=== PATIENT | female | born 1970 | race Caucasian/White ===

== ENCOUNTER 2019-09-21 20:48 | Inpatient (IN) ==
[2019-09-21] MEDS ORDERED: 0.9 % Sodium Chloride 1,000 ML ONE (21:07)
[2019-09-21] MEDS: 0.9 % Sodium Chloride 1,000 ML IVC ONE ×2 (21:14→22:54)
[2019-09-21 21:22] LABS: Basophils % 0.6 %; Hematocrit 40.2 % (35.3-44.9); Hemoglobin 12.4 g/dL (11.5-15.4); Immature Granulocytes % 0.1 % (0-4); Mean Corpuscular HGB Conc 30.8 g/dL (31.6-35.5); Mean Corpuscular Hemoglobin 30.8 pg (28.0-33.3)
[2019-09-21 21:24] LABS: Basophils # 0.1 K/mcL (0.0-0.2); Eosinophils # 0.4 K/mcL (0.0-0.6); Eosinophils % 2.8 %; Immature Platelets 39.7 % (1.1-6.1); Lymphocytes % 28.8 %; Mean Corpuscular Volume 99.8 fL (83.0-100.0); Monocytes # 1.4 K/mcL (0.0-1.3); Monocytes % 9.9 %; Neutrophils # 7.9 K/mcL (1.6-8.9); Platelet Count 279 K/mcL (140-400); Red Blood Count 4.03 M/mcL (3.82-4.97); Red Cell Distribution Width 12.5 % (11.5-14.5); Segmented Neutrophils % 57.8 %; White Blood Count 13.7 K/mcL (4.3-11.1)
[2019-09-21 21:26] LABS: VBG HCO3 29 mEq/L (21-27); VBG PCO2 54 mmHg (41-51); VBG PH 7.34 pH Units (7.32-7.42); VBG PO2 45 mmHg (25-50)
[2019-09-21 21:30] LABS: INR 0.9; Prothrombin Time 10.3 Seconds (9.4-12.1)
[2019-09-21 21:32] LABS: Activated Partial Thrombo Time 33.9 Seconds (26.0-36.0)
[2019-09-21 21:42] LABS: Large Platelets Present (Not Present); Platelet Estimate Normal (Normal)
[2019-09-21 21:48] LABS: Alanine Aminotransferase 14 Units/L (7-52); Alkaline Phosphatase 81 Units/L (34-104); Aspartate Amino Transferase 12 Units/L (13-39); BUN/Creatinine Ratio 15 (6-26); Bilirubin,Total 0.3 mg/dL (0.3-1.0); Blood Urea Nitrogen 10 mg/dL (6-20); Calcium 9.6 mg/dL (8.6-10.3); Carbon Dioxide 28 mEq/L (23-29); Chloride 97 mEq/L (98-107); Globulin 3.9 g/dL (2.4-3.5); Glucose 229 mg/dL (70-105); Osmolality,Calculated 286 (280-300); Potassium 4.5 mEq/L (3.5-5.1); Sodium 135 mEq/L (136-145); Total Protein 7.9 g/dL (6.4-8.9); Troponin I < 0.03 ng/mL (< 0.04); eGFR For African Americans > 60 (> 60); eGFR For Non-African Americans > 60 (> 60)
[2019-09-21 22:01] LABS: Thyroid Stimulating Hormone 6.075 mcIU/mL (0.340-5.600)
[2019-09-21 22:52] LABS: Bilirubin,Urine Negative (Negative); Blood,Urine Negative (Negative); Clarity,Urine Clear (Clear); Color,Urine Yellow (Yellow); Glucose,Urine (UA) 250 mg/dL (Normal); Ketones,Urine Negative (Negative); Leukocyte Esterase,Urine Negative (Negative); Nitrite,Urine Negative (Negative); Protein,Urine Negative (Neg-Trace); Specific Gravity,Urine 1.014 (1.010-1.025); Urobilinogen,Urine Normal (Normal)
[2019-09-21] MEDS ORDERED: levoFLOXacin 750 MG/150 ML 750 MG/150 ML BAG IVPB ONE (23:21)
[2019-09-21] MEDS ORDERED: cefTRIAXone 1,000 MG in 0.9 % Sodium Chloride Mini Bag 100 ML IVPB ONE (23:21)
[2019-09-21] MEDS ORDERED: Lactulose Oral Soln 20 GM/30 ML UDC PO ONE (23:38)
[2019-09-21] MEDS: 0.9 % Sodium Chloride 1,000 ML IVC SCH (23:42)
[2019-09-21] MEDS ORDERED: Naloxone 0.4 MG/ML INJ IVP PRN (23:43)
[2019-09-21] MEDS ORDERED: cefTRIAXone 1,000 MG in Water for inj. (sterile) 10 ML IVPB ONE (23:45)
[2019-09-22 01:47] LABS: Immature Granulocytes % 0.1 % (0-4)
[2019-09-22 01:49] LABS: Basophils # 0.1 K/mcL (0.0-0.2); Basophils % 0.5 %; Eosinophils # 0.4 K/mcL (0.0-0.6); Eosinophils % 2.6 %; Immature Platelets 35.5 % (1.1-6.1); Lymphocytes # 2.9 K/mcL (0.6-4.6); Lymphocytes % 21.3 %; Mean Corpuscular HGB Conc 30.8 g/dL (31.6-35.5); Mean Corpuscular Hemoglobin 30.8 pg (28.0-33.3); Monocytes # 1.3 K/mcL (0.0-1.3); Monocytes % 9.9 %; Neutrophils # 8.8 K/mcL (1.6-8.9); Platelet Count 259 K/mcL (140-400); Red Cell Distribution Width 12.5 % (11.5-14.5); Segmented Neutrophils % 65.6 %; White Blood Count 13.4 K/mcL (4.3-11.1)
[2019-09-22] MEDS ORDERED: *HR* Dextrose 50 % in Water (Syg) 50 ML SYRINGE IVP PRN (01:51)
[2019-09-22] MEDS ORDERED: Dextrose Gel 15 GM/37.5 ML TUBE PO PRN ×2 (01:51)
[2019-09-22] MEDS ORDERED: D5% in Water 1,000 ML IVC PRN (01:51)
[2019-09-22] MEDS ORDERED: polyethylene glycoL 3350 17 GM POWD.PACK PO PRN (02:06)
[2019-09-22 02:11] LABS: BUN/Creatinine Ratio 16 (6-26); Blood Urea Nitrogen 9 mg/dL (6-20); Calcium 8.8 mg/dL (8.6-10.3); Carbon Dioxide 25 mEq/L (23-29); Chloride 102 mEq/L (98-107); Glucose 192 mg/dL (70-105); Osmolality,Calculated 288 (280-300); Potassium 4.3 mEq/L (3.5-5.1); Sodium 137 mEq/L (136-145); eGFR For African Americans > 60 (> 60); eGFR For Non-African Americans > 60 (> 60)
[2019-09-22] MEDS: 0.9 % Sodium Chloride 1,000 ML IVC SCH ×2 (03:46→07:32)
[2019-09-22] MEDS: Insulin LISPRO 300 UNITS/3 ML VIAL SQ SCH ×3 (06:32→18:22)
[2019-09-22] MEDS: Piperacillin/Tazobactam 3.375 GM in 0.9 % Sodium Chloride Mini Bag 100 ML IVPB SCH ×2 (07:32→15:22)
[2019-09-22] MEDS: lisinopriL 5 MG TABLET PO SCH (07:32)
[2019-09-22 08:49] LABS: BUN/Creatinine Ratio 14 (6-26); Blood Urea Nitrogen 8 mg/dL (6-20); Calcium 8.6 mg/dL (8.6-10.3); Carbon Dioxide 24 mEq/L (23-29); Chloride 106 mEq/L (98-107); Glucose 178 mg/dL (70-105); Magnesium 1.5 mg/dL (1.6-2.6); Osmolality,Calculated 291 (280-300); Potassium 4.3 mEq/L (3.5-5.1); Sodium 139 mEq/L (136-145); eGFR For African Americans > 60 (> 60); eGFR For Non-African Americans > 60 (> 60)
[2019-09-22] MEDS: Vitamin E 200 UNIT (90MG) CAPSULE PO SCH (12:15)
[2019-09-22] MEDS ORDERED: RisperiDAL 3 MG TABLET PO SCH (21:00)
[2019-09-22] MEDS ORDERED: traZODone 50 MG TABLET PO SCH (21:00)
[2019-09-22] MEDS ORDERED: Insulin DETEMIR 100 UNIT/ML X5UNITS SQ SCH (21:00)
[2019-09-23] MEDS: Piperacillin/Tazobactam 3.375 GM in 0.9 % Sodium Chloride Mini Bag 100 ML IVPB SCH (00:20)
[2019-09-23] MEDS: Insulin LISPRO 300 UNITS/3 ML VIAL SQ SCH ×2 (00:21→05:54)
[2019-09-23 02:42] LABS: BUN/Creatinine Ratio 16 (6-26); Blood Urea Nitrogen 9 mg/dL (6-20); Calcium 9.3 mg/dL (8.6-10.3); Carbon Dioxide 26 mEq/L (23-29); Chloride 103 mEq/L (98-107); Glucose 191 mg/dL (70-105); Magnesium 1.9 mg/dL (1.6-2.6); Osmolality,Calculated 292 (280-300); Potassium 3.9 mEq/L (3.5-5.1); Sodium 139 mEq/L (136-145); eGFR For African Americans > 60 (> 60); eGFR For Non-African Americans > 60 (> 60)
[2019-09-23 03:06] LABS: Hematocrit 37.4 % (35.3-44.9); Hemoglobin 11.6 g/dL (11.5-15.4); Immature Platelets 36.9 % (1.1-6.1); Mean Corpuscular Hemoglobin 30.8 pg (28.0-33.3); Mean Corpuscular Volume 99.2 fL (83.0-100.0); Platelet Count 269 K/mcL (140-400); Red Blood Count 3.77 M/mcL (3.82-4.97); Red Cell Distribution Width 12.8 % (11.5-14.5); White Blood Count 14.1 K/mcL (4.3-11.1)
[2019-09-23] MEDS ORDERED: *HR* Enoxaparin 40 MG/0.4 ML SYRINGE SQ SCH (06:00)
[2019-09-23 07:12] VITALS: BP 117/69
[2019-09-23] MEDS: Vitamin E 200 UNIT (90MG) CAPSULE PO SCH (09:11)
[2019-09-23] MEDS: lisinopriL 5 MG TABLET PO SCH (09:11)
[2019-09-25 10:32] LABS: Acinetobacter baumannii by PCR Not Detected (Not Detect); Candida albicans by PCR Not Detected (Not Detect); Candida glabrata by PCR Not Detected (Not Detect); Candida krusei by PCR Not Detected (Not Detect); Candida parapsilosis by PCR Not Detected (Not Detect); Candida tropicalis by PCR Not Detected (Not Detect); Enterobacter cloacae Cmplx PCR Not Detected (Not Detect); Enterobacteriaceae by PCR Not Detected (Not Detect); Enterococcus by PCR Not Detected (Not Detect); Escherichia coli by PCR Not Detected (Not Detect); Klebsiella oxytoca by PCR Not Detected (Not Detect); Klebsiella pneumoniae by PCR Not Detected (Not Detect); Proteus by PCR Not Detected (Not Detect); Pseudomonas aeruginosa by PCR Not Detected (Not Detect); Serratia marcescens by PCR Not Detected (Not Detect); Staphylococcus aureus by PCR Not Detected (Not Detect); Staphylococcus by PCR DETECTED (Not Detect); Streptococcus agalactiae(B)PCR Not Detected (Not Detect); Streptococcus by PCR Not Detected (Not Detect); Streptococcus pneumoniae PCR Not Detected (Not Detect); Streptococcus pyogenes (A) PCR Not Detected (Not Detect); mecA Methicillin-Resist Gene Not Detected (Not Detect)
== END 2019-09-23 12:51 | disposition home or self-care (01) | DRG 720 ==
LOC: EMEROOARM 20:48 → 3BNU 20:48 → SUATTDRO 23:54 → 3BNU 09-22 00:07
PROVIDERS: ADMIT Internal Medicine; ATTEND Internal Medicine